=== PATIENT | female | born 1985 | race African-American/Black ===

== ENCOUNTER 2019-04-05 17:38 | Inpatient (IN) | payer OTHER ==
--- NOTE | 2019-04-05 21:38 | PN ---
Ante-Partal Exam - Subjective Subjective: Pt came to LD due to c/o of leaking fluid Pt on progesterone Vital Signs: Vital Signs Temperature 99.1 F 04/05/19 17:45 Pulse Rate 76 04/05/19 18:30 Respiratory Rate 20 04/05/19 18:30 Blood Pressure 138/82 04/05/19 18:30 O2 Sat by Pulse Oximetry (%) Bleeding: No Headache: No Visual changes: No Right upper quadrant pain: No - Contractions Contractions: No - Exam during Labor Category: I Monitor Accelerations: Present Monitor Decelerations: None Exam: Vaginal (nitrazine neg) Presentation: Vertex - Intrapartum Hemorrhage Risk Risk Score: 0 Risk Level: Low Risk - Assessment/Plan Assessment/Plan: IUP at 37.6 reported SROM at home Decrease XAVI from 14 to 7 cm Hx of cervical incompetence Mild Oligo Plan Admit to observe consider induction of labor tomorrow
[2019-04-05] MEDS ORDERED: DEXTROSE 5%-LACTATED RINGERS 1,000 ML IV SCH (22:00)
[2019-04-05] MEDS ORDERED: AMPICILLIN - 2 GM in SODIUM CHLORIDE 100 ML IVPB ONE (23:30)
[2019-04-05 23:46] LABS: BASO % 0.1 % (0-2.0); EOS % 1.4 % (0-4.5); HEMATOCRIT 32.7 % (32.4-45.2); LYMPH % 18.9 % (8-40); MCH 28.6 pg (25.7-33.7); MCHC 33.6 g/dl (32.0-36.0); MEAN CELL VOLUME 85.1 fl (80-96); MEAN PLT VOLUME 7.9 fl (7.5-11.1); MONO % 8.3 % (3.8-10.2); NEUT % 71.3 % (42.8-82.8); PLATELET COUNT 272 K/MM3 (134-434); RBC 3.85 M/mm3 (3.60-5.2); RDW 15.3 % (11.6-15.6); WHITE BLOOD COUNT 6.5 K/mm3 (4.0-10.0)
[2019-04-05] MEDS ORDERED: AMPICILLIN SODIUM 2 GM VIAL ONE (23:48)
[2019-04-05 23:58] LABS: INR 0.92 (0.83-1.09); PROTHROMBIN TIME (PATIENT) 10.8 SEC (9.7-13.0)
[2019-04-06 00:01] LABS: ACTIVATED PTT 26.2 SECONDS (25.2-36.5)
[2019-04-06 00:05] LABS: BLOOD UREA NITROGEN 6.8 mg/dL (7-18); CALCIUM 8.8 mg/dL (8.5-10.1); CREATININE 0.6 mg/dL (0.55-1.3); POTASSIUM 3.5 mmol/L (3.5-5.1)
[2019-04-06 01:06] VITALS: BMI 30.7
[2019-04-06] MEDS ORDERED: AMPICILLIN SODIUM 1 GM VIAL ONE ×6 (03:04→23:23)
[2019-04-06] MEDS: AMPICILLIN - 1 GM in SODIUM CHLORIDE 100 ML IVPB SCH ×6 (03:30→23:30)
[2019-04-06] MEDS: ELECTROLYTE-148 SOLN 1,000 ML IV SCH (06:00)
--- NOTE | 2019-04-06 09:28 | HP ---
Past Medical History - Primary Care Physician PCP:: Melvi Harper - Admission Limitations to Obtaining History: No Limitations - Past Medical History ...: 3 ...Para: 0 ...Term: 0 ...: 0 ...Spon : 0 ...Induced : 2 ...Multiple Gestation: 0 ...LMP: 07/14/18 ... Weeks Gestation by Dates: 38 ...EDC by Dates: 04/17/19 ...EDC by Sono: 04/20/19 - Past Surgical History Past Surgical History: Yes: None Hx Myomectomy: No Hx Transabdominal Cerclage: No - Smoking History Smoking history: Never smoked Aproximately how many cigarettes per day: 0 - Alcohol/Substance Use Hx Alcohol Use: No Home Medications - Allergies Allergies/Adverse Reactions: Allergies Allergy/AdvReac Type Severity Reaction Status Date / Time No Known Allergies Allergy Verified 01/31/19 10:41 - Home Medications Home Medications: Ambulatory Orders Pnv No.95/Ferrous Fum/Folic AC [ Vitamin Tablet] 1 each PO DAILY Progesterone, Micronized [Crinone] 1.125 gm VG HS 01/31/19 Ibuprofen [Motrin -] 600 mg PO QID #28 tablet 04/07/19 Review of Systems - Review of Systems Constitutional: reports: No Symptoms Eyes: reports: No Symptoms HENT: reports: No Symptoms Neck: reports: No Symptoms Cardiovascular: reports: No Symptoms Respiratory: reports: No Symptoms Gastrointestinal: reports: No Symptoms Genitourinary: reports: No Symptoms Breasts: reports: No Symptoms Reported Musculoskeletal: reports: No Symptoms Integumentary: reports: No Symptoms Neurological: reports: No Symptoms Endocrine: reports: No Symptoms Hematology/Lymphatic: reports: No Symptoms Psychiatric: reports: No Symptoms Physical Exam - Maternity Vital Signs: Vital Signs Temperature 98.3 F 04/06/19 08:00 Pulse Rate 73 04/06/19 08:00 Respiratory Rate 20 04/06/19 08:00 Blood Pressure 139/88 04/06/19 08:00 O2 Sat by Pulse Oximetry (%) Constitutional: Yes: Well Nourished, No Distress Neck: Yes: WNL Cardiovascular: Yes: WNL Lungs: Clear to auscultation Breast(s): Yes: WNL - Abdominal Exam/OB Fundal Height: 38 Number of Fetuses: Single Presentation: Vertex Category: I Decelerations: None - Vaginal Exam/OB Dilatation (cm): closed Effacement (%): 50 Amniotic Membrane Status: Ruptured Amniotic Fluid: Yes: Clear Presentation: Vertex/Position Station: -1 - Physical Exam Musculoskeletal: Yes: WNL Extremities: Yes: WNL Edema: No Psychiatric: Yes: WNL, Alert, Oriented - Labs Lab Results: CBC, BMP 04/05/19 23:30 04/05/19 23:30 Hemorrhage Risk Assessment - Risk Factors Risk Score: 0 Risk Level: Low Risk Problem List - Problems (1) Spontaneous rupture of membranes Code(s): DHZ4617 - (2) 38 weeks gestation of Code(s): Z3A.38 - 38 WEEKS GESTATION OF Assessment/Plan iup at 38 week srom GBS positive Plan cervidil amp
[2019-04-06] MEDS ORDERED: DINOPROSTONE 10 MG VAGINAL SUPPOSITORY VG ONE ×2 (09:36→23:45)
[2019-04-06] MEDS ORDERED: LACTATED RINGERS SOLUTION 1,000 ML/1,000 ML INFUS.BAG IV SCH (09:45)
[2019-04-07] MEDS: ELECTROLYTE-148 SOLN 1,000 ML IV SCH
[2019-04-07] MEDS: AMPICILLIN - 1 GM in SODIUM CHLORIDE 100 ML IVPB SCH ×5 (03:00→20:06)
[2019-04-07] MEDS ORDERED: AMPICILLIN SODIUM 1 GM VIAL ONE ×4 (03:18→15:57)
[2019-04-07] MEDS ORDERED: OXYTOCIN 30 UNITS in 0.9% NS 30 UNIT/500 ML INFUS.BAG IVPB SCH (08:30)
[2019-04-07] MEDS ORDERED: OXYTOCIN 30 UNITS in 0.9% NS 30 UNIT/500 ML INFUS.BAG IVPB ONE (08:36)
[2019-04-07] MEDS ORDERED: PROMETHAZINE HCL 25 MG/1 ML VIAL ONE (09:09)
[2019-04-07] MEDS ORDERED: BUTORPHANOL TARTRATE 1 MG/ML VIAL ONE ×2 (09:09)
[2019-04-07] MEDS ORDERED: BUTORPHANOL TARTRATE 2 MG/ML VIAL IVPUSH ONE (09:15)
[2019-04-07] MEDS ORDERED: PROMETHAZINE HCL 25 MG/1 ML VIAL IVPB ONE (09:15)
[2019-04-07] MEDS ORDERED: FENTANYL/BUPIVACAINE/NS/PF - PCEA - 50 ML DISP.SYRIN EP ONE ×2 (09:55→15:02)
--- NOTE | 2019-04-07 09:56 | PN ---
Ante-Partal Exam - Subjective Subjective: Pt with co of pain and leaking fluid Vital Signs: Vital Signs Temperature 98.2 F 04/07/19 09:00 Pulse Rate 76 04/07/19 09:00 Respiratory Rate 20 04/07/19 09:00 Blood Pressure 142/81 04/07/19 09:00 O2 Sat by Pulse Oximetry (%) Bleeding: No Headache: No Visual changes: No Right upper quadrant pain: No - Contractions Contractions: Yes Regularity: Irregular Monitor Mode: External - Exam during Labor Variability: Moderate Heart Rate Location: [facility] Category: I Monitor Accelerations: Present Monitor Decelerations: None Exam: Vaginal Dilatation (cm): 3 Effacement (%): 90 Amniotic Membrane Status: Ruptured Amniotic Fluid: Clear Presentation: Vertex Station: 0 - Intrapartum Hemorrhage Risk Medium Risk Factors: None High Risk Factors: None Risk Score: 0 Risk Level: Low Risk - Assessment/Plan Assessment/Plan: active labor 38 weeks GBS positive Plan pitocin pt will consider an epidural continue GBS proph
[2019-04-07] MEDS ORDERED: FENTANYL/BUPIVACAINE/NS/PF - PCEA - 50 ML DISP.SYRIN EP SCH ×2 (11:15→12:00)
--- NOTE | 2019-04-07 11:53 | PN ---
Ante-Partal Exam - Subjective Vital Signs: Vital Signs Temperature 98.2 F 04/07/19 09:00 Pulse Rate 76 04/07/19 09:00 Respiratory Rate 20 04/07/19 09:00 Blood Pressure 142/81 04/07/19 09:00 O2 Sat by Pulse Oximetry (%) Bleeding: No Headache: No Visual changes: No Right upper quadrant pain: No - Contractions Contractions: Yes Monitor Mode: External - Exam during Labor Category: I Monitor Decelerations: None Exam: Vaginal Dilatation (cm): 6-7 Amniotic Membrane Status: Intact Presentation: Vertex Station: 0 - Intrapartum Hemorrhage Risk Risk Score: 0 Risk Level: Low Risk - Assessment/Plan Assessment/Plan: SP epidural very comfortable Cat 1 Plan Anticipate vaginal delivery continue ptiocin and present management
[2019-04-07] MEDS ORDERED: NALOXONE HCL 0.4 MG/ML VIAL IVPUSH PRN (11:59)
[2019-04-07] MEDS ORDERED: OXYTOCIN 20 UNITS in 0.9% NS 20 UNIT/1,000 ML INFUS.BAG IV ONE (16:32)
--- NOTE | 2019-04-07 17:24 | PN ---
Ante-Partal Exam - Subjective Vital Signs: Vital Signs Temperature 98.3 F 04/07/19 16:00 Pulse Rate 83 04/07/19 16:00 Respiratory Rate 18 04/07/19 16:00 Blood Pressure 133/78 04/07/19 16:00 O2 Sat by Pulse Oximetry (%) 100 04/07/19 16:00 - Exam during Labor Category: II Monitor Decelerations: Variable Exam: Vaginal Dilatation (cm): FD Effacement (%): 100 Amniotic Membrane Status: Ruptured Presentation: Vertex Station: +1 - Intrapartum Hemorrhage Risk Risk Score: 0 Risk Level: Low Risk - Assessment/Plan Assessment/Plan: IUP at 38 weeks srom Plan anticipate vaginal delivery
[2019-04-07] MEDS ORDERED: LIDOCAINE HCL 1% PRESERVATIVE FREE - 30ML VIAL ONE (18:20)
--- NOTE | 2019-04-07 18:46 | PN ---
Delivery - Delivery Vaginal Delivery: No Problems Type of Anesthesia: Local, Epidural Episiotomy/Laceration: Right Mediolateral EBL (cc): 300 Delivery, Single - Stages of Labor Placenta: Yes: Spontaneous - Condition of Infant Gender: Female Position: OA - [place] Feeding Plan Initial Plan: Elected not to breastfeed exclusively throughout hospitalization
[2019-04-07] MEDS ORDERED: OXYTOCIN 20 UNITS in 0.9% NS 20 UNIT/1,000 ML INFUS.BAG IV SCH (19:00)
[2019-04-07] MEDS ORDERED: IBUPROFEN 600 MG TABLET (FP) PO PRN (20:38)
[2019-04-07] MEDS ORDERED: DOCUSATE SODIUM 100 MG CAPSULE (FP) PO PRN (20:39)
[2019-04-07] MEDS ORDERED: BISACODYL 10 MG SUPP.RECT RC PRN (20:39)
[2019-04-07] MEDS ORDERED: BENZOCAINE 28 GM HEMORRHOIDAL OINTMENT TP PRN (20:40)
[2019-04-07] MEDS ORDERED: WITCH HAZEL 50% (TUCKS) 40 PAD/JAR PAD TP PRN (20:41)
[2019-04-07] MEDS ORDERED: BENZOCAINE 20% 57 GM BOTTLE TP PRN (20:41)
[2019-04-07] MEDS ORDERED: METHYLERGONOVINE MALEATE 0.2 MG/1 ML AMP IM PRN (20:41)
[2019-04-07] MEDS: oxyCODONE HCL 5 MG TABLET PO PRN (21:08)
[2019-04-07] MEDS: ACETAMINOPHEN 325 MG TABLET (FP) PO PRN (21:08)
[2019-04-08] MEDS: ACETAMINOPHEN 325 MG TABLET (FP) PO PRN ×4 (02:06→23:11)
[2019-04-08] MEDS: oxyCODONE HCL 5 MG TABLET PO PRN ×4 (02:07→23:09)
[2019-04-08 07:47] LABS: BASO % 0.2 % (0-2.0); EOS % 0.3 % (0-4.5); HEMATOCRIT 30.1 % (32.4-45.2); HEMOGLOBIN 10.1 GM/dL (10.7-15.3); LYMPH % 7.9 % (8-40); MCH 28.5 pg (25.7-33.7); MCHC 33.6 g/dl (32.0-36.0); MEAN CELL VOLUME 84.6 fl (80-96); MEAN PLT VOLUME 7.9 fl (7.5-11.1); MONO % 6.5 % (3.8-10.2); NEUT % 85.1 % (42.8-82.8); PLATELET COUNT 242 K/MM3 (134-434); RBC 3.56 M/mm3 (3.60-5.2); RDW 15.6 % (11.6-15.6); WHITE BLOOD COUNT 12.8 K/mm3 (4.0-10.0)
--- NOTE | 2019-04-08 23:28 | PN ---
Post Note - Post Date of Delivery: 04/07/19 Post Day: 1 Vital Signs: Vital Signs - 24 hr 04/08/19 04/08/19 04/08/19 02:00 05:48 09:00 Temperature 98.6 F 98.0 F 98.6 F Pulse Rate 103 H 87 91 H Respiratory 18 18 18 Rate Blood Pressure 149/82 125/64 139/73 04/08/19 04/08/19 18:00 22:00 Temperature 98.2 F 97.6 F Pulse Rate 76 80 Respiratory 18 18 Rate Blood Pressure 140/87 125/75 Labs: Laboratory Results - last 24 hr 04/08/19 07:10 WBC 12.8 H RBC 3.56 L Hgb 10.1 L Hct 30.1 L MCV 84.6 MCH 28.5 MCHC 33.6 RDW 15.6 Plt Count 242 MPV 7.9 Absolute Neuts (auto) 10.9 H Neutrophils % 85.1 H Lymphocytes % 7.9 L D Monocytes % 6.5 Eosinophils % 0.3 Basophils % 0.2 Nucleated RBC % 0 - Subjective Subjective: No Complaints, Tolerating Diet, No Nausea or vomiting - Objective Afebrile: Yes Breast: Not engorged Abdomen: Soft, Non-tender Uterus: Fundus firm Vagina: Scant lochia Extremities: Non-tender - Assessment/Plan (1) Spontaneous rupture of membranes Assessment: S/P Normal Plan: Routine Care
--- NOTE | 2019-04-09 08:23 | DS ---
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: Vital Signs Temperature 97.6 F 04/08/19 22:00 Pulse Rate 80 04/08/19 22:00 Respiratory Rate 18 04/08/19 22:00 Blood Pressure 125/75 04/08/19 22:00 O2 Sat by Pulse Oximetry (%) 100 04/07/19 20:00 Constitutional: Yes: Well Nourished, No Distress Cardiovascular: Yes: WNL Respiratory: Yes: WNL Gastrointestinal: Yes: WNL, Normal Bowel Sounds, Soft ....Post : Yes: Uterus firm, Uterus non-tender Musculoskeletal: Yes: WNL Extremities: Yes: WNL Edema: Yes Labs: CBC, BMP 04/08/19 07:10 04/05/19 23:30 Delivery - Delivery Vaginal Delivery: No Problems Type of Anesthesia: Local, Epidural Episiotomy/Laceration: Right Mediolateral EBL (cc): 300 Delivery, Single - Stages of Labor Date 1st Stage Initiatied: 04/07/19 Time 1st Stage Initiated: 08:00 Date 2nd Stage Initiated: 04/07/19 Time 2nd Stage Initiated: 17:10 Date of Delivery: 04/07/19 Time of Delivery: 18:25 Time Placenta Delivered: 18:30 Placenta: Yes: Spontaneous - 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 Present: [place]: Shane Yepez Gender: Female Weight: 6 lb 2 oz Position: OA Total Hours ROM (Hrs/Mins): 50hrs/30mins - 1 Minute Total Score: 8 5 Minutes Total Score: 8 - [place] Feeding Plan Initial Plan: Elected not to breastfeed exclusively throughout hospitalization Discharge Summary Reason For Visit: LABOR Current Active Problems 38 weeks gestation of (Acute) Spontaneous rupture of membranes (Acute) Procedures: Principal: Normal vaginal delivery Hospital Course: unremarkable Condition: Good - Instructions Diet, Activity, Other Instructions: Physical activity Resume your normal everyday activity as tolerated no heavy lifting or exercise until seen by your surgeon. You may walk unlimited afshan of and climb stairs. You may resume driving the car when you feel safe and comfortable behind the wheel. No sexual activity as instructed. Wound care If you have a bandage, leave it on, and keep dry for 48-72 hours. After that time discard the outer bandage. If they are tapes on the skin under the out of bandage leave them in place. They will peel off in the next 7 to 10 days. Do Not Peel them off. You may shower the day after surgery. If there are tapes present on the skin, you may shower over them. Diet There are no dietary restrictions. Eat healthy, high-fiber foods. Drink 6 to 8 glasses of liquid each day. This will assist in keeping your bowels are regular. Pain management You may take Tylenol or acetaminophen or Ibuprofen (for example, Motrin, Advil etc.) from my pain prescription medication is ordered should be taken as prescribed for moderate to severe pain. Call MD for any of the following: Severe pain not relieved by medication Fever of 101 or higher Excessive bleeding or drainage on dressing Inability to urinate Disposition: HOME - Home Medications Comprehensive Discharge Medication List: Ambulatory Orders Pnv No.95/Ferrous Fum/Folic AC [ Vitamin Tablet] 1 each PO DAILY Progesterone, Micronized [Crinone] 1.125 gm VG HS 01/31/19 Ibuprofen [Motrin -] 600 mg PO QID #28 tablet 04/07/19
[2019-04-09] MEDS: oxyCODONE HCL 5 MG TABLET PO PRN (10:57)
[2019-04-09] MEDS: ACETAMINOPHEN 325 MG TABLET (FP) PO PRN (10:59)
[2019-04-09 14:45] VITALS: BP 125/68; PULSE 78; TEMP 98.4
== END 2019-04-09 13:00 | disposition home or self-care (01) | DRG 807 ==
LOC: JDEL 17:38 → JLDR 22:00 → J3W 04-07 08:45
PROVIDERS: ADMIT Obstetrics & Gynecology; ATTEND Obstetrics & Gynecology
PROC: 10E0XZZ Delivery of Products of Conception, External Approach (ICD-10-PCS; principal; 2019-04-07)
PROC: 0W8NXZZ Division of Female Perineum, External Approach (ICD-10-PCS; 2019-04-07)
DX: O99.824 Streptococcus B carrier state complicating childbirth (principal); Z37.0 Single live birth; Z3A.38 38 weeks gestation of pregnancy
CPT/HCPCS: 36415; 36600; 59409; 76819-TC; 80048; 82803; 85025; 85610; 85730; 86593; 86850; 86900; 86901

== ENCOUNTER 2019-06-11 05:23 | Day surgery (SDC) | payer OTHER ==
[2019-06-10 14:47] VITALS: BMI 29.9
[2019-06-11] MEDS ORDERED: LACTATED RINGERS SOLUTION 1,000 ML IV SCH (08:00)
[2019-06-11] MEDS ORDERED: ACETAMINOPHEN 325 MG TABLET (FP) PO PRN (08:00)
[2019-06-11] MEDS ORDERED: IBUPROFEN 800 MG/8 ML IJ IVPB PRN (08:00)
--- NOTE | 2019-06-11 09:06 | HP ---
History & Physical Update - History History: No Change - Physical Physical: No Change - Assessment Assessment: No Change - Plan Plan: No Change (Agree with H&P from 06/10/19, for suction D&C due to retained products of conception)
[2019-06-11] MEDS ORDERED: MIDAZOLAM HCL 2 MG/2 ML SINGLE DOSE VIAL ONE (09:07)
[2019-06-11] MEDS ORDERED: PROPOFOL 20 ML ONE (09:07)
[2019-06-11] MEDS ORDERED: LIDOCAINE HCL/PF 2% SDV 5ML VIAL ONE (09:07)
[2019-06-11] MEDS ORDERED: DEXAMETHASONE SOD PHOSPHATE 4 MG/1 ML VIAL ONE (09:22)
[2019-06-11] MEDS ORDERED: KETOROLAC TROMETHAMINE 30 MG/1 ML VIAL ONE (09:22)
[2019-06-11] MEDS ORDERED: ONDANSETRON 4 MG/2 ML VIAL IVPUSH PRN (09:41)
[2019-06-11] MEDS ORDERED: oxyCODONE HCL 5 MG TABLET PO PRN (09:41)
--- NOTE | 2019-06-11 11:09 | OP ---
Operative Note - Note: Operative Date: 06/11/19 Pre-Operative Diagnosis: retained POC, abnormal uterine bleeding Operation: suction D&C Post-Operative Diagnosis: Same as Pre-op Surgeon: Clementine Escobar Anesthesiologist/TRIM [employer] BURR OPERATOR: Miranda De La Garza Anesthesia: General Specimens Removed: products of conception, endometrial curettings Operative Report Dictated: Yes
[2019-06-11 13:53] VITALS: TEMP 97.8
[2019-06-11 14:02] VITALS: BP 108/56; PULSE 58
--- NOTE | 2019-06-11 14:55 | OP ---
DATE OF OPERATION: 06/11/2019 PREOPERATIVE DIAGNOSIS: Abnormal uterine bleeding and retained products of conception on ultrasound. POSTOPERATIVE DIAGNOSIS: Abnormal uterine bleeding and retained products of conception on ultrasound. PROCEDURE: Suction dilation and curettage. SURGEON: Clementine Escobar MD ENGINE PILOT: None. ANESTHESIA: General by Dr. Miranda De La Garza. SPECIMENS REMOVED: Products of conception and endometrial curettings. ESTIMATED BLOOD LOSS: 5 mL. COMPLICATIONS: None. COUNTS: Sponge, needle, and instrument count correct. DISPOSITION: Stable to PACU. BRIEF HISTORY AND PROCEDURE: Patient is a 34-year-old female who had given vaginally in March of 2019, who came to the office with complaints of abnormal uterine bleeding after delivery. The patient had an ultrasound examination and was found to have likely products of conception noted on the ultrasound exam. The patient was counseled on her options and elected to undergo a D&C procedure. The patient signed the consent for the procedure in the office and then she was admitted to [facility] outpatient surgery unit on June 11, 2019. Consents for the procedure were reconfirmed. She was then taken back to the operating room, given general anesthesia, and placed in the dorsal lithotomy position. She was prepped and draped in the usual sterile fashion and a hard timeout was performed. A speculum was placed inside the vagina. The anterior lip of the cervix was easily visualized and grasped with a single-tooth tenaculum. The cervix was dilated to accommodate a size 7 suction curette, which was advanced to the fundus of the uterus. Multiple passes of the suction curette were completed. Using sharp curettage, gentle curettage in all 4 [place] of the uterus was completed to remove any remaining placental tissue. This was done until adequate uterine cry was appreciated. One final pass with the suction curette was completed. Minimal bleeding was noted from the cervix. Minimal bleeding was noted from the tenaculum site after removal of the tenaculum. All instruments were removed from the vagina. The patient was awoken from anesthesia in stable condition and recovering in the PACU. Sponge, needle, and instrument count was reported to be correct. CLEMENTINE ESCOBAR DO /[id number]
--- NOTE | 2019-06-13 11:37 | PATH ---
Surgical Pathology Report Patient Name: ELIO VALLEJO Med. Rec. #: [id number] /Age/Gender: 1985 (Age: 34) / F Account: [id number] Location: [facility] SURGICAL Taken: 06/11/2019 Received: 06/11/2019 Reported: 06/13/2019 Physicians: Clementine Escobar M.D. Specimen(s) Received RETAINED PRODUCTS OF CONCEPTION Clinical History Retained products of conception Final Diagnosis RETAINED PRODUCTS OF CONCEPTION, EXCISION: FRAGMENTS OF DEGENERATED DECIDUAL TISSUE. SEPARATE FRAGMENTS OF PROLIFERATIVE ENDOMETRIUM, SMOOTH MUSCLE BUNDLES, AND UNREMARKABLE CERVICAL SQUAMOUS EPITHELIUM. NO CHORIONIC VILLI PRESENT. Electronically Signed Yulisa Navarro M.D. Gross Description Received in formalin labeled with "retained products of conception" are multiple irregular glez and dark red soft tissue fragments measuring 3.5 x 3.5 x 0.2 cm in aggregate. The entire specimen submitted in 3 cassettes. MARCO/06/11/2019 sherin/06/11/2019
== END 2019-06-11 13:30 | disposition home or self-care (01) ==
LOC: JASU-SURG 05:23
PROVIDERS: ATTEND Obstetrics & Gynecology
PROC: 10D17ZZ Extraction of Products of Conception, Retained, Via Natural or Artificial Opening (ICD-10-PCS; principal; 2019-06-11 09:00)
DX: O73.1 Retained portions of placenta and membranes, without hemorrhage (principal); Z3A.00 Weeks of gestation of pregnancy not specified; N93.9 Abnormal uterine and vaginal bleeding, unspecified
CPT/HCPCS: 88305-TC; 94760

== ENCOUNTER 2023-08-01 22:05 | Emergency (ER) | payer OTHER ==
[~2023-08-01 22:05] MED LIST: LIDOCAINE PATCH REMOVAL MC SCH
[2023-08-01 22:34] VITALS: BP 150/84; PULSE 85; RESP 18; TEMP 98; BMI 27.8
[2023-08-01] MEDS ORDERED: ACETAMINOPHEN 500 MG TABLET (FP) PO ONE (22:34)
[2023-08-01] MEDS ORDERED: LIDOCAINE 5% TOPICAL PATCH TP ONE (22:34)
[2023-08-01] MEDS ORDERED: ACETAMINOPHEN 325 MG TABLET (FP) ONE (22:36)
[2023-08-01] MEDS ORDERED: LIDOCAINE 4% PATCH TP ONE (22:36)
[2023-08-01 23:30] LABS: POTASSIUM 3.6 mmol/L (3.5-5.1)
[2023-08-01 23:31] LABS: BASO % 0.5 % (0-2.0); EOS % 2.6 % (0-4.5); HEMATOCRIT 38.9 % (32.4-45.2); HEMOGLOBIN 12.8 GM/dL (10.7-15.3); LYMPH % 29.2 % (8-40); MCH 28.4 pg (25.7-33.7); MCHC 32.9 g/dl (32.0-36.0); MEAN CELL VOLUME 86.5 fl (80-96); MEAN PLT VOLUME 7.3 fl (7.5-11.1); MONO % 7.5 % (3.8-10.2); NEUT % 60.2 % (42.8-82.8); PLATELET COUNT 295 10^3/uL (134-434); RDW 13.9 % (11.6-15.6); WHITE BLOOD COUNT 5.4 K/mm3 (4.0-10.0)
[2023-08-01 23:33] LABS: ALBUMIN 3.8 g/dl (3.4-5.0); CALCIUM 8.5 mg/dL (8.5-10.1)
[2023-08-01 23:35] LABS: CREATININE 0.8 mg/dL (0.55-1.3)
[2023-08-01 23:37] LABS: BILIRUBIN,TOTAL 0.3 mg/dL (0.2-1); TOT PROT 6.8 g/dl (6.4-8.2)
[2023-08-01] MEDS ORDERED: KETOROLAC TROMETHAMINE 15 MG/ML VIAL ONE (23:48)
[2023-08-01] MEDS: KETOROLAC TROMETHAMINE 15 MG/ML VIAL IVPUSH ONE (23:52)
[2023-08-02] MEDS ORDERED: diazePAM 5 MG TABLET PO ONE (01:43)
[2023-08-02] MEDS: KETOROLAC TROMETHAMINE 15 MG/ML VIAL IVPUSH ONE (01:44)
[2023-08-02] MEDS ORDERED: diazePAM CARPU-JECT 10 MG/2 ML DISP.SYRIN ONE (01:46)
[2023-08-02] MEDS ORDERED: KETOROLAC TROMETHAMINE 15 MG/ML VIAL IVPUSH ONE (04:49)
[2023-08-02] MEDS ORDERED: KETOROLAC TROMETHAMINE 30 MG/1 ML VIAL ONE (04:50)
== END 2023-08-02 05:40 | disposition home or self-care (01) ==
LOC: JER 22:05
DX: M54.2 Cervicalgia (principal); M62.838 Other muscle spasm
CPT/HCPCS: 36415; 70496-TC; 70498-TC; 72125-TC; 80053; 84703; 85025; 99284-25

== ENCOUNTER 2024-01-21 04:43 | Day surgery (SDC) | payer OTHER ==
[2024-01-16 17:50] VITALS: BMI 28.3
[2024-01-21] MEDS ORDERED: ACETAMINOPHEN 325 MG TABLET (FP) PO PRN (07:40)
[2024-01-21] MEDS ORDERED: IBUPROFEN 400 MG TABLET (FP) PO PRN (07:40)
[2024-01-21] MEDS ORDERED: FENTANYL CITRATE/PF 50 MCG/ML VIAL ONE ×5 (11:05→12:38)
[2024-01-21] MEDS ORDERED: SODIUM CHLORIDE 0.9% P/F 10 ML VIAL IJ ONE ×2 (11:06→11:07)
[2024-01-21] MEDS ORDERED: ceFAZolin SODIUM 1 GM VIAL ONE (11:06)
[2024-01-21] MEDS ORDERED: PROPOFOL 20 ML ONE ×2 (11:06→11:18)
[2024-01-21] MEDS ORDERED: LIDOCAINE HCL/PF 2% SDV 5ML VIAL ONE (11:06)
[2024-01-21] MEDS ORDERED: MIDAZOLAM HCL 2 MG/2 ML SINGLE DOSE VIAL ONE ×2 (11:06→11:23)
[2024-01-21] MEDS ORDERED: DEXAMETHASONE SOD PHOSPHATE 4 MG/1 ML VIAL ONE (11:24)
[2024-01-21] MEDS ORDERED: ONDANSETRON 4 MG/2 ML VIAL IVPUSH PRN (11:54)
[2024-01-21] MEDS ORDERED: LACTATED RINGERS SOLUTION 1,000 ML IV SCH (12:00)
[2024-01-21] MEDS: KETOROLAC TROMETHAMINE 30 MG/1 ML VIAL IVPUSH ONE (12:08)
[2024-01-21] MEDS ORDERED: KETOROLAC TROMETHAMINE 30 MG/1 ML VIAL ONE (12:08)
[2024-01-21 13:33] VITALS: RESP 20
[2024-01-21 15:30] VITALS: BP 128/78; PULSE 62; TEMP 97.1
== END 2024-01-21 15:15 | disposition home or self-care (01) ==
LOC: JASU-SURG 04:43
PROVIDERS: ATTEND Obstetrics & Gynecology
PROC: 0UB98ZZ Excision of Uterus, Via Natural or Artificial Opening Endoscopic (ICD-10-PCS; principal; 2024-01-21 09:30)
DX: D25.0 Submucous leiomyoma of uterus (principal); N80.03 Adenomyosis of the uterus
CPT/HCPCS: 81025; 88305-TC; 94760